=== PATIENT | male | born 1985 | race Two or more races ===

== ENCOUNTER 2020-09-29 09:45 | Emergency (ER) | payer SELFPAY ==
[~2020-09-29] VITALS: Ht 188 cm; Wt 90.0 kg
[2020-09-29] MEDS ORDERED: SODIUM CHLORIDE 0.9% 1,000 ML IV ONE (11:00)
[2020-09-29 11:29] LABS: EOSINOPHILS % 0.7 % (0.0-5.0); HEMATOCRIT. 46.7 % (42.0-52.0); HEMOGLOBIN. 16.9 g/dL (14.0-18.0); LYMPHOCYTES % 34.2 % (20.0-50.0); MEAN CORPUSCULAR HEMOGLOBIN 32.9 pg (28.0-32.0); MEAN CORPUSCULAR VOLUME 91.2 fL (80.0-94.0); MEAN PLATELET VOLUME 7.1 fl (7.4-10.4); MONOCYTES % 8.3 % (2.0-8.0); NEUTROPHILS % 55.8 % (40.0-76.0); PLATELET 221 x1000/uL (130-400); RED BLOOD CELL COUNT 5.12 mill/uL (4.7-6.1); RED CELL DISTRIBUTION WIDTH 12.6 % (11.6-14.6)
[2020-09-29 11:38] LABS: PROTHROMBIN TIME 10.5 sec (9.6-11.0)
[2020-09-29 11:48] LABS: CHLORIDE 106 mEq/L (98-107)
[2020-09-29 11:52] LABS: ETHANOL BLOOD 176 mg/dL
[2020-09-29] MEDS ORDERED: FOLIC ACID 1 MG, THIAMINE HCL 100 MG, MVI, ADULT NO.1 10 ML in DEXTROSE 5% WATER 1,000 ML IV SCH (12:30)
[2020-09-29] MEDS ORDERED: MULT-1146 MT (13:56)
[2020-09-29 14:05] VITALS: BP 131/87
== END 2020-09-29 15:11 | disposition home or self-care (01) ==
LOC: ER 09:45
DX: F10.10 Alcohol abuse, uncomplicated (principal); R55 Syncope and collapse; K76.0 Fatty (change of) liver, not elsewhere classified; R53.1 Weakness; R42 Dizziness and giddiness; F12.10 Cannabis abuse, uncomplicated; E86.0 Dehydration; Z79.899 Other long term (current) drug therapy; F17.290 Nicotine dependence, other tobacco product, uncomplicated; Y90.6 Blood alcohol level of 120-199 mg/100 ml
CPT/HCPCS: 36415; 71045; 76705; 80053; 80320; 83690; 85025; 85610; 93005; 96361; 96365; 99285; 99406; J3411; J3490; J7030; J7070; G0480